=== PATIENT | male | born 1955 | race Caucasian/White ===

== ENCOUNTER → 2020-01-27 | Outpatient (REF) | payer OTHER, BC | LOC: M LAB REF 11:30 | PROVIDERS: ATTEND Dermatology | DX: D48.9 Neoplasm of uncertain behavior, unspecified (principal) | CPT/HCPCS: 11102; 88305; G0463 ==

== ENCOUNTER 2024-07-07 06:09 | Day surgery (SDC) | payer MEDICARE ==
[~2024-07-07] VITALS: Ht 177.8 cm; Wt 97.5 kg
[~2024-07-07 06:09] MED LIST: ATOR1TAB21 PO; BIMA01SOL OU; BRIM0.2S13 OD; CLOP75TA2 PO; DORZ2SOL5 OU; LISI20TA33 PO; METF500T13 PO; ROSU10TA61 PO
[2024-07-07] MEDS ORDERED: INSULIN LISPRO (NovoLOG) PER UNIT SC PRN (06:45)
[2024-07-07] MEDS ORDERED: MIDAZOLAM INJ 2MG/2ML VIAL As Ordered ONE (06:45)
[2024-07-07] MEDS ORDERED: GLUCOSE 4 GM CHEW PO PRN (06:45)
[2024-07-07] MEDS ORDERED: DEXTROSE 50% 50ML SYRINGE IV PRN (06:45)
[2024-07-07] MEDS ORDERED: NS (Normal Saline) 0.9% 1,000 ML IV SCH (06:45)
[2024-07-07] MEDS ORDERED: GLUCAGON INJ 1MG VIAL SC PRN (06:45)
[2024-07-07] MEDS ORDERED: fentaNYL 100 MCG/2 ML INJECTION As Ordered ONE (06:46)
[2024-07-07] MEDS: LIDOCAINE 3.5 % 1ML OPHTH TOPICAL GEL OU ONE (07:19)
[2024-07-07] MEDS ORDERED: GLYCOPYRROLATE INJ 0.2 MG/ML 2 ML VIAL As Ordered ONE (07:49)
[2024-07-07] MEDS ORDERED: propofoL 200 MG/20 ML VIAL As Ordered ONE (07:50)
[2024-07-07] MEDS: POVIDONE-IODINE 5% OPHTH PREP SOL 30ML As Ordered ONE (08:15)
[2024-07-07] MEDS: LIDOCAINE 2% W/EPINEPHRINE 20ML VIAL **PRES FREE As Ordered ONE (08:35)
[2024-07-07] MEDS: TOBRADEX OPHTH OINT 3.5 GM As Ordered ONE (08:41)
[2024-07-07 08:45] VITALS: BP 126/60; TEMP 97.3; O2SAT 96
== END 2024-07-07 09:07 | disposition home or self-care (01) ==
LOC: M SDC 06:09
PROVIDERS: ATTEND Ophthalmology
DX: L82.1 Other seborrheic keratosis (principal); E11.9 Type 2 diabetes mellitus without complications; I10 Essential (primary) hypertension; E78.2 Mixed hyperlipidemia; G47.33 Obstructive sleep apnea (adult) (pediatric); R00.1 Bradycardia, unspecified; Z79.899 Other long term (current) drug therapy; Z79.84 Long term (current) use of oral hypoglycemic drugs; Z79.02 Long term (current) use of antithrombotics/antiplatelets; Z86.73 Personal history of transient ischemic attack (TIA), and cerebral infarction without residual deficits
CPT/HCPCS: 11441; 88305; 88331; J1596; J2250; J3010

== ENCOUNTER → 2024-08-11 | Day surgery (SDC) | payer MEDICARE ==
[~2024-08-11] VITALS: Ht 177.8 cm; Wt 97.4 kg
[~2024-08-11] MED LIST changes: +ASPI81TA26 PO; +MIDAZOLAM INJ 2MG/2ML VIAL As Ordered ONE; +fentaNYL 100 MCG/2 ML INJECTION As Ordered ONE
[2024-08-11] MEDS: LIDOCAINE 3.5 % 1ML OPHTH TOPICAL GEL OU ONE (06:39)
[2024-08-11] MEDS: mitoMYcin 0.2 MG/VIAL KIT FOR OPHTHALMIC USE As Ordered ONE (06:39)
[2024-08-11] MEDS: TOBRADEX OPHTH OINT 3.5 GM As Ordered ONE (06:39)
[2024-08-11] MEDS: POVIDONE-IODINE 5% OPHTH PREP SOL 30ML As Ordered ONE (06:39)
== END | disposition home or self-care (01) ==
LOC: M SDC 06:18
PROVIDERS: ATTEND Ophthalmology
DX: H40.1111 Primary open-angle glaucoma, right eye, mild stage (principal); Z53.09 Procedure and treatment not carried out because of other contraindication

== ENCOUNTER 2024-09-22 07:07 | Day surgery (SDC) | payer BC, MEDICARE ==
[~2024-09-22] VITALS: Ht 177.8 cm; Wt 93.0 kg
[~2024-09-22 07:07] MED LIST changes: -BRIM0.2S13 OD; +BRIM0.2S13 OU; -MIDAZOLAM INJ 2MG/2ML VIAL As Ordered ONE; -fentaNYL 100 MCG/2 ML INJECTION As Ordered ONE
[2024-09-22] MEDS: LIDOCAINE 3.5 % 1ML OPHTH TOPICAL GEL OU ONE (08:01)
[2024-09-22] MEDS ORDERED: MIDAZOLAM INJ 2MG/2ML VIAL As Ordered ONE (08:04)
[2024-09-22] MEDS ORDERED: fentaNYL 100 MCG/2 ML INJECTION As Ordered ONE (08:04)
[2024-09-22] MEDS: POVIDONE-IODINE 5% OPHTH PREP SOL 30ML As Ordered ONE (08:30)
[2024-09-22] MEDS ORDERED: GLYCOPYRROLATE INJ 0.2 MG/ML 2 ML VIAL As Ordered ONE (08:32)
[2024-09-22] MEDS: TOBRADEX OPHTH OINT 3.5 GM As Ordered ONE (08:40)
[2024-09-22] MEDS: LIDOCAINE 1% SDV 5ML VIAL As Ordered ONE (08:40)
[2024-09-22] MEDS: mitoMYcin 0.2 MG/VIAL KIT FOR OPHTHALMIC USE As Ordered ONE (08:43)
[2024-09-22 08:51] VITALS: BP 161/78; TEMP 97.9; O2SAT 96
== END 2024-09-22 09:10 | disposition home or self-care (01) ==
LOC: M SDC 07:07
PROVIDERS: ATTEND Ophthalmology
DX: H40.811 Glaucoma with increased episcleral venous pressure, right eye (principal); I10 Essential (primary) hypertension; E78.5 Hyperlipidemia, unspecified; E11.9 Type 2 diabetes mellitus without complications; Z86.73 Personal history of transient ischemic attack (TIA), and cerebral infarction without residual deficits; G47.33 Obstructive sleep apnea (adult) (pediatric); Z79.82 Long term (current) use of aspirin; Z79.84 Long term (current) use of oral hypoglycemic drugs; Z79.899 Other long term (current) drug therapy
CPT/HCPCS: 66183; 93005; C1783; J1596; J2250; J3010; J7315

== ENCOUNTER 2024-09-29 06:16 | Day surgery (SDC) | payer MEDICARE ==
[~2024-09-29] VITALS: Ht 177.8 cm; Wt 98.5 kg
[2024-09-29] MEDS: POVIDONE-IODINE 5% OPHTH PREP SOL 30ML As Ordered ONE (06:43)
[2024-09-29] MEDS: LIDOCAINE 3.5 % 1ML OPHTH TOPICAL GEL OU ONE (06:45)
[2024-09-29] MEDS ORDERED: MIDAZOLAM INJ 2MG/2ML VIAL As Ordered ONE (06:55)
[2024-09-29] MEDS ORDERED: fentaNYL 100 MCG/2 ML INJECTION As Ordered ONE (06:55)
[2024-09-29] MEDS ORDERED: GLYCOPYRROLATE INJ 0.2 MG/ML 2 ML VIAL As Ordered ONE (07:58)
[2024-09-29] MEDS: TOBRADEX OPHTH OINT 3.5 GM As Ordered ONE (08:06)
[2024-09-29] MEDS: mitoMYcin 0.2 MG/VIAL KIT FOR OPHTHALMIC USE As Ordered ONE (08:06)
[2024-09-29] MEDS: LIDOCAINE 1% SDV 5ML VIAL As Ordered ONE (08:07)
[2024-09-29 08:13] VITALS: BP 139/64; TEMP 97.9; O2SAT 98
== END 2024-09-29 08:25 | disposition home or self-care (01) ==
LOC: M SDC 06:16
PROVIDERS: ATTEND Ophthalmology
DX: H40.1121 Primary open-angle glaucoma, left eye, mild stage (principal); E11.9 Type 2 diabetes mellitus without complications; I10 Essential (primary) hypertension; E78.00 Pure hypercholesterolemia, unspecified; G47.30 Sleep apnea, unspecified; Z79.899 Other long term (current) drug therapy; Z79.82 Long term (current) use of aspirin; Z79.84 Long term (current) use of oral hypoglycemic drugs; Z85.828 Personal history of other malignant neoplasm of skin
CPT/HCPCS: 66183; C1783; J1596; J2250; J3010; J7315